=== PATIENT | male | born 1995 | race Caucasian/White ===

== ENCOUNTER 2017-09-03 19:11 | Emergency (ER) | payer BC ==
[2017-09-03 19:30] VITALS: BP 118/75
--- NOTE | 2017-09-03 19:43 | ED ---
Neck Pain - HPI Summary HPI Summary: 21M presents with right sided anterior neck pain today. He states he felt the pain all of a sudden and moved his anterior neck around with his fingers and was concerned that he moved something. He states the pain is improving. He states though it feels hot on the right side of his neck. He denies any headache or change in vision. It is not a tearing pain. He denies any chest pain or SOB. He denies any sore throat. He denies any cough. He denies any difficulty swallowing. He has never had this pain before. He denies any posterior neck pain. He has not tried anything for his symptoms. he has history of TMJ. He denies any recent dental or ear infections. - History of Current Complaint Chief Complaint: UCUpperExtremity Stated Complaint: NECK PAIN Time Seen by Provider: 09/03/17 19:20 Pain Intensity: 6 - Allergies/Home Medications Allergies/Adverse Reactions: Allergies Allergy/AdvReac Type Severity Reaction Status Date / Time No Known Allergies Allergy Verified 09/03/17 19:21 Home Medications: Home Medications Cyclobenzaprine TAB* [Flexeril 10 MG TAB*] 10 mg PO DAILY PRN 09/03/17 [History Confirmed 09/03/17] Fluticasone NASAL SPRAY 50MCG* [Flonase NASAL SPRAY 50MCG*] 2 spray BOTH NARES BEDTIME 09/03/17 [History Confirmed 09/03/17] PMH/Surg Hx/FS Hx/Imm Hx Endocrine/Hematology History: Denies: Hx Anticoagulant Therapy Cardiovascular History: Denies: Hx Auto Implanted Cardiovert Defib - Surgical History Surgery Procedure, Year, and Place: t/a as young child, dental Infectious Disease History: No Infectious Disease History: Denies: Traveled Outside the [place] in Last 30 Days - Family History Known Family History: Positive: Cardiac Disease, Hypertension, Diabetes - Social History Alcohol Use: Rare Substance Use Type: Reports: None Smoking Status (MU): Never Smoked Tobacco Review of Systems Negative: Fever Negative: Chest Pain Negative: Shortness Of Breath Positive: Myalgia - neck pain All Other Systems Reviewed And Are Negative: Yes Physical Exam Triage Information Reviewed: Yes Vital Signs On Initial Exam: Initial Vitals Temp Pulse Resp BP Pulse Ox 98.8 F 76 18 118/75 100 09/03/17 19:24 09/03/17 19:24 09/03/17 19:24 09/03/17 19:24 09/03/17 19:24 Vital Signs Reviewed: Yes Appearance: Positive: Well-Appearing Skin: Positive: Warm, Dry Head/Face: Positive: Normal Head/Face Inspection Eyes: Positive: Normal, EOMI, RED, Conjunctiva Clear ENT: Positive: Normal ENT inspection, Pharynx normal, TMs normal, Other - thyroid midline, able to swallow without difficulty Neck: Positive: Supple, Nontender, No Lymphadenopathy, Other: - tenderness right side of anterior neck on side Respiratory/Lung Sounds: Positive: Clear to Auscultation, Breath Sounds Present Cardiovascular: Positive: Normal, RRR Abdomen Description: Positive: Nontender, Soft Bowel Sounds: Positive: Present Musculoskeletal: Positive: Strength/ROM Intact - neck, Other - nontender to posterior neck Neurological: Positive: Reflexes Intact - biceps Psychiatric: Positive: Normal Diagnostics - Vital Signs Vital Signs Temp Pulse Resp BP Pulse Ox 09/03/17 19:24 98.8 F 76 18 118/75 100 - Laboratory Lab Statement: Any lab studies that have been ordered have been reviewed, and results considered in the medical decision making process. Neck Course/Dx - Course Course Of Treatment: 21M presents with right sided anterior neck pain today. He states he felt the pain all of a sudden and moved his anterior neck around with his fingers and was concerned that he moved something. He states the pain is improving. He states though it feels hot on the right side of his neck. He denies any headache or change in vision. It is not a tearing pain. He denies any chest pain or SOB. He denies any sore throat. He denies any cough. He denies any difficulty swallowing. He has never had this pain before. He denies any posterior neck pain. He has not tried anything for his symptoms. on exam has tenderness on right side of anterior neck. no midline tenderness, lungs CTA, able to swallow, thyroid midline, tenderness right side of neck. no lymphadenopathy. like muscular, told if anything changes to go to the ED. patient understand and agrees with plan. - Diagnoses Differential Dx/HQI/PQRI: Positive: Sprain, Strain, Vertebral Artery Aneurysm Provider Diagnoses: Neck pain Discharge - Sign-Out/Discharge Documenting (check all that apply): Discharge - Discharge Plan Condition: Good Disposition: HOME Patient Education Materials: Neck Pain (ED) Referrals: Non Staff,Doctor [Primary Care Provider] - Additional Instructions: Take Tylenol or ibuprofen every [address] ice or heat Follow up with primary within 5 days Go to the ED if develop headache, visual changes, or any new or worsening symptoms - Billing Disposition and Condition Condition: GOOD Disposition: HOME
== END 2017-09-03 19:49 | disposition home or self-care (01) ==
LOC: UCCORT 19:11
DX: M54.2 Cervicalgia (principal)
CPT/HCPCS: 99211; G0463